=== PATIENT | female | born 1995 | race African-American/Black ===

== ENCOUNTER 2017-01-10 16:39 | Emergency (ER) | payer OTHER ==
[2017-01-10 16:44] VITALS: BP 141/69; BMI 32.5
--- NOTE | 2017-01-10 18:27 | DR.GENAD ---
HPI - PCP Primary Care Physician: benjamin - Complaint/Symptoms Chief Complaint Doctors Comments: Patient admits to being on the job for three weeks. Chief Complaint:: patient stated she works at [employer] and has been moving heavy boxes and it has caused her stomach to hurt. - Source History Provided: Patient - Mode of Arrival Mode of Arrival: Ambulatory - Timing Onset of Chief Complaint: 12/27/16 PMH - PMH Past Medical History: Yes Past Medical History: Migraines, GERD Past Surgical History: No - Family History History of Family Medical Conditions: Yes Family Medical History: Diabetes Mellitus, Cancer, Hypertension - Social History Does patient currently use any type of tobacco product: No Have you used tobacco products in the last 12 months: No Type of Tobacco Use: None Does any household member use tobacco: No Alcohol Use: None Do you use any recreational Drugs:: No Lives With: Family Lives Where: Home - infectious screening In the last 2 months have you had wt loss of >10#?: NO Have you had fever, night sweats or hemotysis?: No Have you traveled outside the country in the last 6 months?: No Isolation: Standard ROS - Review of Systems Eyes: No Symptoms Reported ENTM: No Symptoms Reported Respiratoy: No Symptoms Reported Cardiovascular: No Symptoms Reported Gastrointestinal/Abdominal: No Symptoms Reported Genitourinary: No Symptoms Reported Neurological: No Symptoms Reported Musculoskeletal: No Symptoms Reported Integumentary: No Symptoms Reported Hematologic/Lymphatic: No Symptoms Reported Endocrine: No Symptoms Reported Psychiatric: No Symptoms Reported All Other Systems: Reviewed and Negative PE - Vital Signs Vitals: Temperature 98.6 F Pulse Rate 94 Respiratory Rate 16 Blood Pressure 141/69 O2 Sat by Pulse Oximetry 100 - General General Appearance: Alert, In No Apparent Distress - Head Head Exam: Normal Inspection, Atraumatic - Eyes Eye exam: Normal Appearance, PERRL, EOMI - ENT ENT Exam: Normal Exam External Ear Exam: Normal External Inspection TM/Canal Exam: Bilateral Normal Nose Exam: Normal Nose Exam Mouth Exam: Normal Inspection Throat Exam: Normal Inspection - Neck Neck Exam: Normal Inspection - Chest Chest Inspection: Normal Inspection - Respiratory Respiratory Exam: Normal Lung Sounds Bilat Respiratory Exam: Bilateral Clear to Auscultation - Cardiovascular Cardiovascular Exam: Regular Rate, Normal Rhythm - Abdominal Exam Abdominal Exam: Normal Inspection Abdominal Tenderness: Other (sore abdominal muscles). negative: RUQ, RLQ, LUQ, LLQ, Epigastrium, Suprapubic, Diffuse, Mild, Moderate, Severe - Extremities Extremities Exam: Normal Inspection, Full ROM - Back Back Exam: Normal Inspection - Neurologic Neurological Exam: Alert, Oriented X3, CN II-XII Intact - Psychiatric Psychiatric Exam: Normal Affect, Normal Mood - Skin Skin Exam: Warm, Dry, Intact - Diagnosis Discharge Problem: Overuse injury - Discharge Plan Condition: Stable - Follow ups/Referrals Follow ups/Referrals: Mansoor Ahn [Primary Care Provider] - 3 days - Instructions
== END 2017-01-10 18:36 | disposition home or self-care (01) ==
LOC: ER 16:50
DX: R10.84 Generalized abdominal pain (principal)
CPT/HCPCS: 99281; 99282

== ENCOUNTER 2019-08-13 06:14 | Inpatient (IN) ==
[2019-08-13] MEDS ORDERED: D5LR 1L W PITOCIN 10 UNITS/L 10 UNITS/1,000 ML BAG IV ONE (06:33)
[2019-08-13] MEDS ORDERED: D5 1/2 NS 1000 ML 1,000 ML IV ONE (06:33)
[2019-08-13] MEDS ORDERED: AMPICILLIN VIAL 2 GRAM 2 G in NS 100 ML IV + SPIKE MINIBAG* 100 ML IV SCH (06:38)
[2019-08-13] MEDS ORDERED: PHENERGAN INJ 25 MG IM PRN ×2 (06:38→12:17)
[2019-08-13] MEDS ORDERED: MORPHINE SULFATE INJ 2 MG INJ IVP PRN (06:38)
[2019-08-13] MEDS ORDERED: D5LR 1L W PITOCIN 10 UNITS/L 10 UNITS/1,000 ML BAG IV PRN (06:38)
[2019-08-13] MEDS ORDERED: NUBAIN INJ 200 MG VIAL MULTIDOSE IVP PRN (06:38)
[2019-08-13] MEDS ORDERED: REGLAN INJ 10 MG VIAL IVP PRN (06:38)
[2019-08-13] MEDS ORDERED: D5 1/2 NS 1000 ML 1,000 ML IV SCH (06:38)
[2019-08-13] MEDS ORDERED: AMPICILLIN VIAL 2 GRAM ONE (06:59)
[2019-08-13] MEDS ORDERED: NS 100 ML IV 100 ML IV ONE ×2 (07:00→11:27)
--- NOTE | 2019-08-13 07:01 | DR.OB ---
OB Quick Note - Assessment/Plan Assessment/Plan: L&D 08/13/19 at 6:55am S-No complaint. Reports CTX beginning at about 3am this morning. O-Afebrile,VSS TKG=[id number] with good LTV, +accel., no decel. CTX=q 2-5 min., mild to moderate by palpation CVX=3cm/75%/0/VTX AROM with moderate meconium. IUPC and FSE placed. A-IUP at 39 3/7 weeks for induction +GBS P-Begin pitocin augmentation Anticipate
[2019-08-13 07:05] LABS: BLOOD UREA NITROGEN 10 mg/dL (7-18); CALCIUM 8.7 mg/dL (8.5-10.1); CARBON DIOXIDE 20.8 mmol/L (21-32); CHLORIDE 103 mmol/L (98-107); SODIUM 136 mmol/L (136-145); eGFR NON BLACK RACES > 60 (>60)
[2019-08-13 07:09] LABS: BASOPHILS # (AUTO) 0.1 X10^3/uL (0.0-0.1); BASOPHILS % (AUTO) 0.8 % (0.2-1.0); EOSINOPHILS # (AUTO) 0.1 x10^3/uL (0.0-0.2); EOSINOPHILS % (AUTO) 0.6 % (0.9-2.9); HEMATOCRIT 31.8 % (36.0-47.0); HEMOGLOBIN 10.7 g/dL (12.0-16.0); LYMPHOCYTES % (AUTO) 22.6 % (21.0-51.0); MEAN CORPUSCULAR HEMOGLOBIN 27.5 pg (27.0-34.0); MEAN CORPUSCULAR HGB CONC 33.5 g/dL (33.0-35.0); MEAN CORPUSCULAR VOLUME 82.2 fL (80.0-100.0); MEAN PLATELET VOLUME 7.8 fL (7.4-11.0); MONOCYTES # (AUTO) 0.5 x10^3/uL (0.3-0.8); MONOCYTES % (AUTO) 5.6 % (0.0-13.0); NEUTROPHILS # (AUTO) 6.3 x10^3/uL (2.2-4.8); NEUTROPHILS % (AUTO) 70.4 % (42.0-75.0); PLATELET COUNT 386 X10^3/uL (150.0-450.0); RED BLOOD COUNT 3.87 X10^6/uL (3.5-5.4); RED CELL DISTRIBUTION WIDTH 14.5 % (11.6-16.5); WHITE BLOOD COUNT 8.9 X10^3/uL (3.6-10.0)
[2019-08-13] MEDS ORDERED: LR 1000 ML IV 1,000 ML IV ONE (07:36)
[2019-08-13] MEDS: VSL#3 PO SCH ×2 (07:52→09:26)
[2019-08-13] MEDS ORDERED: FENTANYL INJ 100 mcg ONE (08:01)
[2019-08-13] MEDS ORDERED: NAROPIN EPIDURAL 0.2% + FENTANYL 90MCG 60 ML EPI ONE (08:01)
[2019-08-13 09:39] LABS: BILIRUBIN,URINE NEGATIVE (NEGATIVE); BLOOD/HEMOGLOBIN,URINE NEGATIVE (NEGATIVE); GLUCOSE, URINE NEGATIVE (NEGATIVE); KETONES,URINE NEGATIVE (NEGATIVE); LEUKOCYTE ESTERASE ,URINE 1+ (NEGATIVE); NITRITES,URINE NEGATIVE (NEGATIVE); PH,URINE 6.5 (5.0 - 8.0); PROTEIN,URINE NEGATIVE (NEGATIVE); UROBILINOGEN,URINE NORMAL (NORMAL)
[2019-08-13 09:45] LABS: APPEARANCE,URINE CLEAR (CLEAR); COLOR,URINE YELLOW (YELLOW)
[2019-08-13 09:46] LABS: BACTERIA,URINE NEGATIVE /HPF (NEGATIVE); RBC,URINE NONE SEEN /HPF (0-3); SQUAMOUS EPITHELIAL CELL,UR RARE /HPF (NEGATIVE)
[2019-08-13] MEDS ORDERED: AMPICILLIN VIAL 1 GRAM ONE (11:27)
[2019-08-13] MEDS ORDERED: PITOCIN ONE (11:41)
[2019-08-13] MEDS: PITOCIN IVP ONE ×2 (11:55→15:24)
[2019-08-13] MEDS: D5 1/2 NS 1L W PITOCIN 20 UNITS/L 20 UNITS/1,000 ML BAG IV ONE ×2 (11:55→15:25)
[2019-08-13] MEDS ORDERED: AMPICILLIN VIAL 1 GRAM 1 G in NS 50 ML IV + SPIKE MINIBAG* 50 ML IV SCH (12:00)
[2019-08-13] MEDS ORDERED: MOTRIN TAB 800 MG PO PRN (12:17)
--- NOTE | 2019-08-13 12:17 | DR.OB ---
OB Quick Note - Assessment/Plan Assessment/Plan: Delivery Note CORN MILLER 08/13/19 at 11:53am Patient complete and pushing. and direct OA. FHT decelled to 80's without consistent recovery for 10 minutes. Vacuum applied with good placement verified but popped off on one push. Reapplied next CTX and head delivered with two pushes over intact perineum. Vacuum released and nose/mouth bulb suctioned. Nuchal cord x 1 reduced. Body delivered over intact perineum. Cord clamped x 2 and cut. Infant handed to attendant. Cord sent for gases. Placenta delivered spontaneously / intact / 3 vessel cord. No CVX / vaginal / perineal tears. Viable male infant, VTX/OA, wt=6'10" and 8/9, stable to NBN. Mother stable to RR. [id number].
[2019-08-13] MEDS ORDERED: DERMOPLAST PAIN RELIEF SPRAY TOP PRN (15:33)
[2019-08-13] MEDS ORDERED: MILK OF MAGNESIA PO PRN (15:33)
[2019-08-13] MEDS: D5 1/2 NS 1000 ML 1,000 ML with PITOCIN 20 UNITS IV SCH ×4 (15:33→23:50)
[2019-08-13] MEDS ORDERED: ADACEL or BOOSTRIX TDaP VACCINE IM ONE (15:33)
[2019-08-13] MEDS ORDERED: AMBIEN PO PRN (15:33)
[2019-08-14 05:12] LABS: HEMATOCRIT 27.5 % (36.0-47.0); HEMOGLOBIN 9.4 g/dL (12.0-16.0)
[2019-08-14] MEDS ORDERED: ADACEL or BOOSTRIX TDaP VACCINE IM ONE (05:23)
[2019-08-14] MEDS: D5 1/2 NS 1000 ML 1,000 ML with PITOCIN 20 UNITS IV SCH ×2 (06:18)
[2019-08-14] MEDS ORDERED: DEPO-PROVERA CONTRACEPTIVE INJ IM ONE (07:33)
[2019-08-14] MEDS ORDERED: PRENATAL PLUS PO SCH (09:00)
[2019-08-14] MEDS: VSL#3 PO SCH (09:03)
[2019-08-14 13:22] VITALS: BP 107/66
== END 2019-08-14 15:00 | disposition home or self-care (01) | DRG 806 ==
LOC: LD 06:14 → MED/SURG 13:42
PROVIDERS: ADMIT Specialist; ATTEND Specialist
DX: Z37.0 Single live birth; O98.311 Other infections with a predominantly sexual mode of transmission complicating pregnancy, first trimester; O99.013 Anemia complicating pregnancy, third trimester; Z3A.39 39 weeks gestation of pregnancy; O99.824 Streptococcus B carrier state complicating childbirth; O98.511 Other viral diseases complicating pregnancy, first trimester; A59.9 Trichomoniasis, unspecified; D50.8 Other iron deficiency anemias; B95.1 Streptococcus, group B, as the cause of diseases classified elsewhere; Z23 Encounter for immunization
CPT/HCPCS: 36415; 59409; 80048; 81001; 85014; 85018; 85025; 86592; 86850; 86900; 86901; 90715; A4216; A4222; J0290; J1050; J2590; J2765; J3010; J7050; J7120; S0197; S5010

== ENCOUNTER 2024-10-14 06:18 | Inpatient (IN) ==
[2024-10-14] MEDS ORDERED: REGLAN INJ 10 MG VIAL IVP PRN (06:41)
[2024-10-14] MEDS ORDERED: PITOCIN IVP ONE (06:41)
[2024-10-14] MEDS ORDERED: NUBAIN INJ 20 MG AMP IVP PRN (06:41)
[2024-10-14] MEDS ORDERED: ZOFRAN INJ 4 MG VIAL IVP PRN (06:41)
[2024-10-14] MEDS ORDERED: LR 1,000 ML IV 1,000 ML IV SCH (06:41)
[2024-10-14] MEDS: OXYTOCIN 20 UNIT/1,000 ML-NS 20 UNIT/1,000 ML PLAST..BAG IV PRN (07:05)
--- NOTE | 2024-10-14 07:07 | DR.OB ---
OB QUICK NOTE Assessment/Plan (1) Elective induction of labor planned: Assessment/Plan: L&D 10/14/24 at 6:55am S-No complaint. O-Afebrile,VSS GHG=239 with good LTV, +accel, no decel. CTX=mild, irregular CVX=3cm/50%/0/VTX AROM with clear fluid. IUPC and FSE placed. A-IUP at 39 0/7 weeks for induction A1DM +GBS GERD anemia P-Begin pitocin induction IV ABX in labor F/U labs Anticipate (2) Gestational diabetes mellitus (GDM): (3) Group B streptococcal carriage complicating : (4) GERD (gastroesophageal reflux disease): (5) Anemia:
[2024-10-14] MEDS: D5 1/2 NS 1,000 ML 1,000 ML IV ONE (07:27)
[2024-10-14] MEDS: LR 1,000 ML IV 1,000 ML IV ONE ×2 (07:27→13:31)
[2024-10-14] MEDS: AMPICILLIN VIAL 2 GRAM 2 G in NS 100 ML IV + SPIKE MINIBAG* 100 ML IV SCH (07:30)
[2024-10-14] MEDS: NUBAIN INJ 10 MG AMP ONE (07:42)
[2024-10-14] MEDS ORDERED: MOTRIN TAB 800 MG PO PRN ×2 (10:06→11:08)
[2024-10-14] MEDS ORDERED: AMPICILLIN VIAL 1 GRAM 1 G in NS 50 ML IV 50 ML IV SCH (11:00)
[2024-10-14] MEDS ORDERED: AMBIEN PO PRN (11:08)
[2024-10-14] MEDS ORDERED: MILK OF MAGNESIA PO PRN (11:08)
[2024-10-14] MEDS ORDERED: DERMOPLAST PAIN RELIEF SPRAY TOP PRN (11:08)
--- NOTE | 2024-10-14 11:32 | DR.OB ---
OB QUICK NOTE Assessment/Plan (1) Elective induction of labor planned: Assessment/Plan: Delivery Note SWIFT [employer]ENDER 10/14/24 at 9:58am Patient complete and pushing. Mother and stable. Head delivered over intact perineum. Nuchal cord x 1 reduced. Nose and mouth bulb suctioned. Body delivered over intact perineum. Cord clamped x 2 and cut. Infant handed to attendant. Cord sent for gases. Placenta delivered spontaneously / intact / 3 vessel cord. No CVX / vaginal / perineal tears noted. Viable female infant delivered by , VTX/OA, wt=6'10" and 8/9, stable to NBN. Mother stable to RR. [id number]. (2) Gestational diabetes mellitus (GDM): (3) Group B streptococcal carriage complicating : (4) GERD (gastroesophageal reflux disease): (5) Anemia:
[2024-10-14] MEDS: PITOCIN ONE (13:30)
[2024-10-14] MEDS: CLEOCIN 600 MG IV PREMIX 0 MG/0 ML BAG IV ONE (13:30)
[2024-10-14] MEDS: BETADINE SOLN ONE (13:30)
[2024-10-14] MEDS: AMPICILLIN VIAL 2 GRAM 2 G in NS 100 ML IV 100 ML IV NR (13:30)
[2024-10-14] MEDS: NAROPIN EPIDURAL 0.2% 100 ML ONE (13:31)
[2024-10-14] MEDS: AMPICILLIN VIAL 2 GRAM ONE (13:31)
[2024-10-14] MEDS: VISBIOME PROBIOTIC CAP 112.5 B or equivalent PO SCH (13:32)
[2024-10-14] MEDS: NS 100 ML IV 100 ML ONE (13:32)
[2024-10-14] MEDS: FENTANYL VIAL INJ 100 mcg ONE (13:32)
[2024-10-14] MEDS: OXYTOCIN 20 UNIT/1,000 ML-NS 20 UNIT/1,000 ML PLAST..BAG IV SCH (20:05)
[2024-10-14 22:02] VITALS: RESP 18
[2024-10-15 07:42] VITALS: BP 129/72; PULSE 62; TEMP 98.3; O2SAT 99
[2024-10-15] MEDS: PRENATAL PLUS PO SCH (08:15)
[2024-10-15] MEDS: PROTONIX TAB 40 MG PO SCH (08:15)
[2024-10-15] MEDS: ADACEL or BOOSTRIX TDaP VACCINE IM ONE (09:00)
== END 2024-10-15 11:35 | disposition home or self-care (01) | DRG 806 ==
LOC: LD 06:18 → MED/SURG 11:07
PROVIDERS: ADMIT Specialist; ATTEND Specialist
DX: O98.82 Other maternal infectious and parasitic diseases complicating childbirth; O24.410 Gestational diabetes mellitus in pregnancy, diet controlled; D50.8 Other iron deficiency anemias; B95.1 Streptococcus, group B, as the cause of diseases classified elsewhere; O99.013 Anemia complicating pregnancy, third trimester; O99.613 Diseases of the digestive system complicating pregnancy, third trimester; K21.9 Gastro-esophageal reflux disease without esophagitis; Z37.0 Single live birth; Z01.812 Encounter for preprocedural laboratory examination; Z3A.39 39 weeks gestation of pregnancy